=== PATIENT | male | born 1985 | race African-American/Black ===

== ENCOUNTER 2016-12-29 12:06 | Emergency (ER) | payer OTHER ==
[~2016-12-29] VITALS: Ht 190.5 cm; Wt 155.0 kg
[2016-12-29 13:28] LABS: BASOPHILS % 0.5 % (0.0-2.0); EOSINOPHILS % 1.5 % (0.0-5.0); MEAN CORPUSCULAR HEMOGLOBIN 29.8 pg (28.0-32.0); MEAN CORPUSCULAR HGB CONC 33.4 g/dL (31.0-37.0); MEAN PLATELET VOLUME 7.5 fl (7.4-10.4); MONOCYTES % 7.2 % (2.0-8.0); NEUTROPHILS % 60.8 % (40.0-76.0); PLATELET 223 x1000/uL (130-400); RED BLOOD CELL COUNT 4.71 mill/uL (4.7-6.1); RED CELL DISTRIBUTION WIDTH 14.6 % (11.6-14.6); WHITE BLOOD COUNT 5.2 x1000/uL (4.5-11.0)
[2016-12-29 13:31] LABS: CHLORIDE 103 mEq/L (98-107); INDEX HEMOLYSI 1 (1-3); INDEX ICTERIC 1 (1-4); INDEX LIPEMIC 1 (1-3)
[2016-12-29 13:38] LABS: ALANINE AMINOTRANSFERASE 27 IU/L (13-61); ALBUMIN 3.5 g/dL (3.4-5.0); ANION GAP 10; CALCIUM 8.6 mg/dL (8.5-10.1); CARBON DIOXIDE 29 mEq/L (21-32); LIPASE 81 IU/L (73-393); UREA NITROGEN BLOOD 9 mg/dL (7-21); eGFR > 60 mL/min (>60)
[2016-12-29 13:39] LABS: INR 1.1; PARTIAL THROMBOPLASTIN TIME 31.2 sec (24.0-34.0)
[2016-12-29 15:15] LABS: CLARITY URINE CLEAR (CLEAR); COLOR URINE YELLOW (YELLOW); GLUCOSE URINE NEGATIVE (NEGATIVE); KETONES URINE NEGATIVE (NEGATIVE); LEUKOCYTE ESTERASE URINE NEGATIVE (NEGATIVE); NITRITE URINE NEGATIVE (NEGATIVE); OCCULT BLOOD URINE NEGATIVE (NEGATIVE); PH URINE 5.5 (4.5-8.0); PROTEIN URINE NEGATIVE (NEGATIVE); UROBILINOGEN URINE 0.2 E.U./dL (0.2-1.0)
[2016-12-29 16:31] VITALS: BP 114/64
== END 2016-12-29 17:23 | disposition home or self-care (01) ==
LOC: ER 13:05
DX: K59.00 Constipation, unspecified (principal); R10.84 Generalized abdominal pain
CPT/HCPCS: 36415; 74010; 80053; 81003; 83690; 85025; 85610; 85730; 99285

== ENCOUNTER 2017-03-22 12:07 | Emergency (ER) | payer OTHER ==
[~2017-03-22] VITALS: Ht 190.5 cm; Wt 159.0 kg
[2017-03-22 12:36] VITALS: BP 139/85
[2017-03-22] MEDS ORDERED: TETANUS, DIPHTHERIA, PERTUSSIS VAC/PF 0.5ML (>7YR OLD) IM ONE (13:45)
[2017-03-22] MEDS ORDERED: BACITRACIN ZINC OINT UDPKT TOP ONE (13:45)
[2017-03-22] MEDS ORDERED: LIDOCAINE HCL 1%/EPI 1:200,000 30 ML VIAL MC ONE (13:45)
[2017-03-22] MEDS ORDERED: LIDOCAINE HCL 1% 20ML VIAL (Pyxis) INJ MC ONE (14:30)
== END 2017-03-22 15:40 | disposition home or self-care (01) ==
LOC: ER 12:36
DX: L60.0 Ingrowing nail (principal); L03.039 Cellulitis of unspecified toe
CPT/HCPCS: 10060; 90471; 90715; 99284; J3490; 99283; A4315

== ENCOUNTER 2018-07-24 07:25 | Emergency (ER) | payer SELFPAY ==
[~2018-07-24] VITALS: Ht 190.5 cm; Wt 169.1 kg
[2018-07-24 07:28] VITALS: BP 153/81
== END 2018-07-24 08:07 | disposition home or self-care (01) ==
LOC: ER 07:25
DX: T16.2XXA Foreign body in left ear, initial encounter (principal); X58.XXXA Exposure to other specified factors, initial encounter; Y93.89 Activity, other specified; Y92.9 Unspecified place or not applicable
CPT/HCPCS: 69200; 99284

== ENCOUNTER 2019-02-14 15:23 | Emergency (ER) | payer SELFPAY ==
[~2019-02-14] VITALS: Ht 172.7 cm; Wt 154.0 kg
[2019-02-14 21:05] LABS: BASOPHILS % 0.7 % (0.0-2.0); EOSINOPHILS % 5.8 % (0.0-5.0); HEMATOCRIT. 39.9 % (42.0-52.0); HEMOGLOBIN. 13.3 g/dL (14.0-18.0); LYMPHOCYTES % 34.5 % (20.0-50.0); MEAN CORPUSCULAR VOLUME 90.1 fL (80.0-94.0); MEAN PLATELET VOLUME 8.1 fl (7.4-10.4); MONOCYTES % 7.2 % (2.0-8.0); NEUTROPHILS % 51.8 % (40.0-76.0); PLATELET 230 x1000/uL (130-400); RED BLOOD CELL COUNT 4.43 mill/uL (4.7-6.1); RED CELL DISTRIBUTION WIDTH 15.4 % (11.6-14.6)
[2019-02-14 21:07] LABS: CHLORIDE 108 mEq/L (98-107)
[2019-02-14 23:15] VITALS: BP 127/71
== END 2019-02-14 23:18 | disposition home or self-care (01) ==
LOC: ER 18:03 → ENRESERV 02-15 00:03 → CANRESERV 02-15 00:03 → CANBEDREQ 02-15 03:22
DX: R00.2 Palpitations (principal); Z88.0 Allergy status to penicillin
CPT/HCPCS: 36415; 71045; 80053; 83880; 84484; 85025; 93005; 99284; Z7610

== ENCOUNTER 2019-03-17 19:59 | Emergency (ER) | payer SELFPAY ==
[~2019-03-17] VITALS: Ht 190.5 cm; Wt 146.0 kg
[2019-03-18 04:00] LABS: BASOPHILS % 0.5 % (0.0-2.0); EOSINOPHILS % 5.2 % (0.0-5.0); HEMATOCRIT. 36.5 % (42.0-52.0); HEMOGLOBIN. 12.1 g/dL (14.0-18.0); LYMPHOCYTES % 30.6 % (20.0-50.0); MEAN CORPUSCULAR HEMOGLOBIN 30.1 pg (28.0-32.0); MEAN CORPUSCULAR VOLUME 90.5 fL (80.0-94.0); MEAN PLATELET VOLUME 8.4 fl (7.4-10.4); MONOCYTES % 9.1 % (2.0-8.0); NEUTROPHILS % 54.6 % (40.0-76.0); PLATELET 202 x1000/uL (130-400); RED BLOOD CELL COUNT 4.03 mill/uL (4.7-6.1); RED CELL DISTRIBUTION WIDTH 15.8 % (11.6-14.6)
[2019-03-18 04:06] LABS: CHLORIDE 108 mEq/L (98-107)
[2019-03-18 05:43] VITALS: BP 117/76
== END 2019-03-18 05:30 | disposition home or self-care (01) ==
LOC: ER 19:59
DX: R07.89 Other chest pain (principal); Z88.0 Allergy status to penicillin
CPT/HCPCS: 36415; 71045; 81025; 84484; 85379; 93005; 99284

== ENCOUNTER 2019-03-25 19:18 | Emergency (ER) | payer SELFPAY ==
[~2019-03-25] VITALS: Ht 190.5 cm; Wt 143.8 kg
[2019-03-25] MEDS ORDERED: IBUPROFEN 800MG TABLET PO ONE (22:30)
[2019-03-25 23:17] VITALS: BP 120/72
== END 2019-03-25 23:24 | disposition home or self-care (01) ==
LOC: ER 19:18
DX: M79.632 Pain in left forearm (principal)
CPT/HCPCS: 99282

== ENCOUNTER 2019-07-11 17:11 | Emergency (ER) | payer MEDICAID ==
[~2019-07-11] VITALS: Ht 190.5 cm; Wt 90.0 kg
[2019-07-11 20:58] VITALS: BP 145/94
== END 2019-07-11 20:58 | disposition home or self-care (01) ==
LOC: ER 17:11
DX: B36.0 Pityriasis versicolor (principal); L73.9 Follicular disorder, unspecified; Z88.0 Allergy status to penicillin
CPT/HCPCS: 99283

== ENCOUNTER 2019-10-18 09:58 | Emergency (ER) | payer SELFPAY ==
[~2019-10-18] VITALS: Ht 190.5 cm; Wt 134.6 kg
[2019-10-18] MEDS ORDERED: KETOROLAC 60MG/2ML VIAL IM ONE (10:30)
[2019-10-18 11:47] LABS: CLARITY URINE CLEAR (CLEAR); COLOR URINE YELLOW (YELLOW); KETONES URINE NEGATIVE (NEGATIVE); LEUKOCYTE ESTERASE URINE NEGATIVE (NEGATIVE); NITRITE URINE NEGATIVE (NEGATIVE); OCCULT BLOOD URINE NEGATIVE (NEGATIVE); PH URINE 5.5 (4.5-8.0); PROTEIN URINE NEGATIVE (NEGATIVE); SPECIFIC GRAVITY URINE 1.027 (1.005-1.030); UROBILINOGEN URINE 0.2 E.U./dL (0.2-1.0)
[2019-10-18 12:16] VITALS: BP 138/74
== END 2019-10-18 12:16 | disposition home or self-care (01) ==
LOC: ER 11:10
DX: M54.9 Dorsalgia, unspecified (principal); R10.9 Unspecified abdominal pain
CPT/HCPCS: 71045; 74176; 81003; 96372; 99285; J1885

== ENCOUNTER 2020-05-10 14:55 | Emergency (ER) | payer MEDICAID ==
[~2020-05-10] VITALS: Ht 190.5 cm; Wt 143.0 kg
[2020-05-10 15:05] VITALS: BP 140/84
[2020-05-10] MEDS ORDERED: SODIUM CHLORIDE 0.9% 1,000 ML IV ONE (16:52)
[2020-05-10 17:16] LABS: BASOPHILS % 0.7 % (0.0-2.0); EOSINOPHILS % 2.1 % (0.0-5.0); HEMATOCRIT. 45.3 % (42.0-52.0); HEMOGLOBIN. 15.3 g/dL (14.0-18.0); LYMPHOCYTES % 26.5 % (20.0-50.0); MEAN CORPUSCULAR HEMOGLOBIN 31.9 pg (28.0-32.0); MEAN CORPUSCULAR VOLUME 94.2 fL (80.0-94.0); MEAN PLATELET VOLUME 7.6 fl (7.4-10.4); MONOCYTES % 5.6 % (2.0-8.0); NEUTROPHILS % 65.1 % (40.0-76.0); PLATELET 208 x1000/uL (130-400); RED BLOOD CELL COUNT 4.81 mill/uL (4.7-6.1); RED CELL DISTRIBUTION WIDTH 15.3 % (11.6-14.6)
[2020-05-10 17:22] LABS: CHLORIDE 106 mEq/L (98-107)
[2020-05-10 18:05] LABS: CLARITY URINE CLEAR (CLEAR); COLOR URINE YELLOW (YELLOW); KETONES URINE NEGATIVE (NEGATIVE); LEUKOCYTE ESTERASE URINE NEGATIVE (NEGATIVE); NITRITE URINE NEGATIVE (NEGATIVE); OCCULT BLOOD URINE NEGATIVE (NEGATIVE); PROTEIN URINE NEGATIVE (NEGATIVE); SPECIFIC GRAVITY URINE 1.021 (1.005-1.030); UROBILINOGEN URINE 0.2 E.U./dL (0.2-1.0)
== END 2020-05-10 19:07 | disposition home or self-care (01) ==
LOC: ER 14:55
DX: R42 Dizziness and giddiness (principal); F12.10 Cannabis abuse, uncomplicated; Z88.0 Allergy status to penicillin
CPT/HCPCS: 36415; 70450; 71045; 80053; 81003; 84484; 85025; 93005; 96360; 99285; J7030

== ENCOUNTER 2020-05-18 17:09 | Emergency (ER) | payer MEDICAID, OTHER ==
[~2020-05-18] VITALS: Ht 190.5 cm; Wt 142.8 kg
[2020-05-18] MEDS ORDERED: SODIUM CHLORIDE 0.9% 500 ML IV ONE (19:00)
[2020-05-18 19:34] LABS: BASOPHILS % 0.7 % (0.0-2.0); EOSINOPHILS % 2.5 % (0.0-5.0); HEMATOCRIT. 41.8 % (42.0-52.0); HEMOGLOBIN. 14.2 g/dL (14.0-18.0); LYMPHOCYTES % 28.7 % (20.0-50.0); MEAN CORPUSCULAR HEMOGLOBIN 32.3 pg (28.0-32.0); MEAN CORPUSCULAR VOLUME 94.7 fL (80.0-94.0); MEAN PLATELET VOLUME 7.7 fl (7.4-10.4); NEUTROPHILS % 62.1 % (40.0-76.0); PLATELET 220 x1000/uL (130-400); RED BLOOD CELL COUNT 4.41 mill/uL (4.7-6.1); RED CELL DISTRIBUTION WIDTH 14.5 % (11.6-14.6)
[2020-05-18 19:35] LABS: CHLORIDE 106 mEq/L (98-107)
[2020-05-18] MEDS ORDERED: KETOROLAC 60MG/2ML VIAL IM ONE (21:30)
[2020-05-18 21:36] VITALS: BP 127/88
== END 2020-05-18 23:00 | disposition home or self-care (01) ==
LOC: ER 17:28
DX: R51 Headache (principal); R42 Dizziness and giddiness; F12.10 Cannabis abuse, uncomplicated; Z88.0 Allergy status to penicillin
CPT/HCPCS: 36415; 70450; 80053; 83880; 84443; 84484; 85025; 93005; 96360; 96372; 99285; J1885; J7040

== ENCOUNTER 2020-05-27 17:03 | Inpatient (IN) | payer MEDICAID, OTHER ==
[~2020-05-27] VITALS: Ht 188 cm; Wt 141.1 kg
[2020-05-27 18:21] LABS: BASOPHILS % 0.5 % (0.0-2.0); EOSINOPHILS % 3.3 % (0.0-5.0); HEMOGLOBIN. 14.6 g/dL (14.0-18.0); MEAN CORPUSCULAR HEMOGLOBIN 31.9 pg (28.0-32.0); MEAN PLATELET VOLUME 7.8 fl (7.4-10.4); MONOCYTES % 6.5 % (2.0-8.0); NEUTROPHILS % 67.7 % (40.0-76.0); PLATELET 260 x1000/uL (130-400); RED BLOOD CELL COUNT 4.58 mill/uL (4.7-6.1); RED CELL DISTRIBUTION WIDTH 14.1 % (11.6-14.6)
[2020-05-27 18:28] LABS: CHLORIDE 107 mEq/L (98-107)
[2020-05-27 18:30] LABS: PROTHROMBIN TIME 10.5 sec (9.6-11.0)
[2020-05-27 18:36] LABS: LDL CHOLESTEROL 112 mg/dL (5-100)
[2020-05-27 20:28] LABS: CLARITY URINE CLEAR (CLEAR); COLOR URINE YELLOW (YELLOW); KETONES URINE NEGATIVE (NEGATIVE); LEUKOCYTE ESTERASE URINE NEGATIVE (NEGATIVE); NITRITE URINE NEGATIVE (NEGATIVE); OCCULT BLOOD URINE NEGATIVE (NEGATIVE); PROTEIN URINE NEGATIVE (NEGATIVE); SPECIFIC GRAVITY URINE 1.027 (1.005-1.030); UROBILINOGEN URINE 0.2 E.U./dL (0.2-1.0)
[2020-05-27 20:39] LABS: *AMPHETAMINES SCREEN URINE NEGATIVE (NEGATIVE); *BARBITURATES SCREEN URINE NEGATIVE (NEGATIVE); *BENZODIAZEPINES SCREEN URINE NEGATIVE (NEGATIVE); *COCAINE SCREEN URINE NEGATIVE (NEGATIVE); CANNABINOID URINE SCREEN PRESUMTIVE POSITIVE (NEGATIVE); OPIATES URINE SCREEN NEGATIVE (NEGATIVE); PHENCYCLIDINE URINE SCREEN NEGATIVE (NEGATIVE)
[2020-05-27 20:40] LABS: METHADONE URINE SCREEN NEGATIVE (NEGATIVE)
[2020-05-27 22:30] VITALS: BP 111/70
[2020-05-27 23:30] VITALS: BP 111/70
[2020-05-28 04:00] VITALS: BP 97/50
[2020-05-28 08:00] VITALS: BP 132/69
[2020-05-28] MEDS ORDERED: ASPIRIN 325MG TABLET PO SCH (09:00)
[2020-05-28 12:00] VITALS: BP 141/65
[2020-05-28] MEDS ORDERED: SODIUM CHLORIDE 0.45% 1,000 ML IV SCH (14:00)
[2020-05-28 16:00] VITALS: BP 129/70
[2020-05-28 16:26] LABS: MEAN CORPUSCULAR HEMOGLOBIN 31.7 pg (28.0-32.0); MEAN CORPUSCULAR VOLUME 94.9 fL (80.0-94.0); PLATELET 255 x1000/uL (130-400); RED BLOOD CELL COUNT 4.43 mill/uL (4.7-6.1); RED CELL DISTRIBUTION WIDTH 13.9 % (11.6-14.6)
[2020-05-28 16:31] LABS: CHLORIDE 107 mEq/L (98-107)
[2020-06-01 17:10] LABS: ANTI-DNA DOUBLE STRANDED QUANT < 1 IU/mL (0-9); ANTI-NUCLEAR ANTIBODIES DIRECT Negative (Negative); ANTI-SCLERODERMA-70 AB <0.2 AI (0.0-0.9); RNP ANTIBODY < 0.2 AI (0.0-0.9); SJOGRENS ANTI SS-A < 0.2 AI (0.0-0.9); SJOGRENS ANTI SS-B < 0.2 AI (0.0-0.9); SMITH ABS < 0.2 AI (0.0-0.9)
[2020-06-02 06:11] LABS: DRVVT LA 47.8 sec (0.0-47.0); DRVVT MIX LA 41.7 sec (0.0-47.0); LUPUS ANTICOAG INTERPRETATION Comment: (.); PTT-LA 33.6 sec (0.0-51.9)
[2020-06-02 09:10] LABS: ANGIOTENSION CONVERTING ENZYME 17 U/L (14-82)
[2020-06-02 13:11] LABS: ACTIN (SMOOTH MUSCLE) ANTIBODY 11 Units (0-19); ANTI-MYELOPEROXIDASE AB < 9.0 U/mL (0.0-9.0); ANTI-PROTEINASE 3 ABS < 3.5 U/mL (0.0-3.5); CYTOPLASMIC C-ANCA <1:20 titer (Neg:<1:20); PERINUCLEAR P-ANCA <1:20 titer (Neg:<1:20)
[2020-06-03 15:10] LABS: ATYPICAL P-ANCA <1:20 titer (Neg:<1:20)
== END 2020-05-28 21:15 | disposition home or self-care (01) | DRG 552 ==
LOC: ER 17:03 → 8WST 21:17 → ENRESERV 21:56
PROVIDERS: ADMIT Internal Medicine; ATTEND Internal Medicine
DX: M48.02 Spinal stenosis, cervical region (principal); G37.9 Demyelinating disease of central nervous system, unspecified; E66.01 Morbid (severe) obesity due to excess calories; R51.9 Headache, unspecified; M47.812 Spondylosis without myelopathy or radiculopathy, cervical region; F12.90 Cannabis use, unspecified, uncomplicated; Z68.38 Body mass index [BMI] 38.0-38.9, adult; Z88.0 Allergy status to penicillin; Z83.2 Family history of diseases of the blood and blood-forming organs and certain disorders involving the immune mechanism; Z81.2 Family history of tobacco abuse and dependence; R53.1 Weakness
CPT/HCPCS: 36415; 70551; 70552; 71045; 72141; 72142; 80048; 80053; 80061; 80305; 81003; 82164; 83520; 83721; 84484; 85025; 85027; 85613; 85651; 85732; 86038; 86256; 93005; 97161; 97165; 99285

== ENCOUNTER 2020-10-29 17:56 | Emergency (ER) | payer SELFPAY ==
[~2020-10-29] VITALS: Ht 190.5 cm; Wt 164.0 kg
[2020-10-29 19:48] LABS: CHLORIDE 106 mEq/L (98-107)
[2020-10-29 19:54] LABS: BASOPHILS % 0.4 % (0.0-2.0); EOSINOPHILS % 2.1 % (0.0-5.0); HEMOGLOBIN. 13.9 g/dL (14.0-18.0); LYMPHOCYTES % 24.8 % (20.0-50.0); MEAN CORPUSCULAR HEMOGLOBIN 31.5 pg (28.0-32.0); MEAN CORPUSCULAR VOLUME 90.8 fL (80.0-94.0); MEAN PLATELET VOLUME 7.8 fl (7.4-10.4); MONOCYTES % 6.4 % (2.0-8.0); NEUTROPHILS % 66.3 % (40.0-76.0); PLATELET 253 x1000/uL (130-400); RED BLOOD CELL COUNT 4.41 mill/uL (4.7-6.1)
[2020-10-29 23:08] VITALS: BP 118/73
== END 2020-10-29 23:27 | disposition home or self-care (01) ==
LOC: ER 17:56
DX: R07.89 Other chest pain (principal); F12.10 Cannabis abuse, uncomplicated; M54.9 Dorsalgia, unspecified; R53.1 Weakness; Z88.0 Allergy status to penicillin
CPT/HCPCS: 36415; 71045; 80048; 84484; 85025; 93005; 99285; Z7610

== ENCOUNTER 2020-11-03 11:58 | Emergency (ER) | payer SELFPAY ==
[~2020-11-03] VITALS: Ht 190.5 cm; Wt 178.0 kg
[2020-11-03 13:00] LABS: BASOPHILS % 0.6 % (0.0-2.0); HEMATOCRIT. 44.2 % (42.0-52.0); HEMOGLOBIN. 14.6 g/dL (14.0-18.0); LYMPHOCYTES % 16.1 % (20.0-50.0); MEAN CORPUSCULAR HEMOGLOBIN 30.5 pg (28.0-32.0); MEAN CORPUSCULAR VOLUME 92.3 fL (80.0-94.0); MEAN PLATELET VOLUME 7.9 fl (7.4-10.4); MONOCYTES % 5.5 % (2.0-8.0); NEUTROPHILS % 75.8 % (40.0-76.0); PLATELET 248 x1000/uL (130-400); RED BLOOD CELL COUNT 4.79 mill/uL (4.7-6.1); RED CELL DISTRIBUTION WIDTH 13.9 % (11.6-14.6)
[2020-11-03 13:05] LABS: CHLORIDE 107 mEq/L (98-107)
[2020-11-03 13:15] LABS: ETHANOL BLOOD < 10 mg/dL
[2020-11-03] MEDS ORDERED: SODIUM CHLORIDE 0.9% 1,000 ML IV ONE (13:45)
[2020-11-03 16:07] LABS: OPIATES URINE SCREEN NEGATIVE (NEGATIVE); PHENCYCLIDINE URINE SCREEN NEGATIVE (NEGATIVE)
[2020-11-03 16:08] LABS: *AMPHETAMINES SCREEN URINE NEGATIVE (NEGATIVE); *BARBITURATES SCREEN URINE NEGATIVE (NEGATIVE); *BENZODIAZEPINES SCREEN URINE NEGATIVE (NEGATIVE); *COCAINE SCREEN URINE NEGATIVE (NEGATIVE); CANNABINOID URINE SCREEN PRESUMTIVE POSITIVE (NEGATIVE); METHADONE URINE SCREEN NEGATIVE (NEGATIVE)
[2020-11-03] MEDS ORDERED: IBUP-2030 MT (17:35)
[2020-11-03 18:00] VITALS: BP 138/80
== END 2020-11-03 18:28 | disposition home or self-care (01) ==
LOC: ER 11:58
DX: R07.9 Chest pain, unspecified (principal); J02.9 Acute pharyngitis, unspecified; Z88.0 Allergy status to penicillin
CPT/HCPCS: 36415; 71045; 80053; 80305; 80320; 83690; 83880; 84484; 85025; 87070; 87430; 93005; 96360; 96361; 99285; J7030; G0480

== ENCOUNTER 2021-01-30 10:36 | Emergency (ER) | payer SELFPAY ==
[~2021-01-30] VITALS: Ht 190.5 cm; Wt 160.0 kg
[~2021-01-30 10:36] MED LIST: IBUP-2030 MT
[2021-01-30] MEDS ORDERED: LIDOCAINE HCL/PF 1% 10 MG/ML 5ML VIAL IJ ONE (11:15)
[2021-01-30] MEDS ORDERED: BACITRACIN ZINC OINT UDPKT TOP ONE (11:15)
[2021-01-30] MEDS ORDERED: IBUPROFEN 600MG TABLET PO ONE (11:15)
[2021-01-30] MEDS ORDERED: BO1 TP (12:37)
[2021-01-30 12:55] VITALS: BP 122/73
== END 2021-01-30 12:56 | disposition home or self-care (01) ==
LOC: ER 11:15
DX: L60.0 Ingrowing nail (principal); Z88.0 Allergy status to penicillin
CPT/HCPCS: 99283; J3490; Z7610

== ENCOUNTER 2021-02-01 14:41 | Emergency (ER) | payer MEDICAID ==
[~2021-02-01] VITALS: Ht 190.5 cm; Wt 159.0 kg
[~2021-02-01 14:41] MED LIST changes: +BO1 TP
[2021-02-01] MEDS ORDERED: BACITRACIN ZINC OINT UDPKT TOP ONE (18:15)
[2021-02-01] MEDS ORDERED: T3 PO (18:25)
[2021-02-01] MEDS ORDERED: SULF1TAB48 PO (18:25)
[2021-02-01 18:50] VITALS: BP 125/77
== END 2021-02-01 18:50 | disposition home or self-care (01) ==
LOC: ER 14:41
DX: L60.0 Ingrowing nail (principal); Z88.0 Allergy status to penicillin
CPT/HCPCS: 99283

== ENCOUNTER 2021-02-03 16:43 | Emergency (ER) | payer MEDICAID ==
[~2021-02-03] VITALS: Ht 185.4 cm; Wt 150.0 kg
[~2021-02-03 16:43] MED LIST changes: +SULF1TAB48 PO; +T3 PO
[2021-02-03 16:46] VITALS: BP 123/72
[2021-02-03] MEDS ORDERED: CEPH500T MT (17:30)
== END 2021-02-03 17:42 | disposition home or self-care (01) ==
LOC: ER 16:43
DX: L60.0 Ingrowing nail (principal); L03.031 Cellulitis of right toe; Z88.0 Allergy status to penicillin
CPT/HCPCS: 99281; Z7610

== ENCOUNTER 2021-02-05 11:55 | Emergency (ER) | payer MEDICAID ==
[~2021-02-05] VITALS: Ht 190.5 cm; Wt 159.0 kg
[~2021-02-05 11:55] MED LIST changes: +CEPH500T MT
[2021-02-05 11:58] VITALS: BP 138/86
== END 2021-02-05 13:05 | disposition home or self-care (01) ==
LOC: ER 11:55
DX: L03.031 Cellulitis of right toe (principal); Z48.00 Encounter for change or removal of nonsurgical wound dressing; Z88.0 Allergy status to penicillin
CPT/HCPCS: 99281

== ENCOUNTER 2023-02-22 13:40 | Emergency (ER) | payer SELFPAY ==
[~2023-02-22] VITALS: Ht 190.5 cm; Wt 131.0 kg
[2023-02-22 13:46] VITALS: TEMP 98.8; O2SAT 99
[2023-02-22] MEDS ORDERED: IBUPROFEN 600MG TABLET PO STA (14:00)
[2023-02-22] MEDS ORDERED: NAPR-681 PO (15:07)
[2023-02-22 15:59] VITALS: BP 125/78; PULSE 65; RESP 18
[2023-02-22] MEDS ORDERED: IBUPROFEN 600MG TABLET PO NR (16:00)
== END 2023-02-22 16:00 | disposition home or self-care (01) ==
LOC: ER 13:40
DX: S39.012A Strain of muscle, fascia and tendon of lower back, initial encounter (principal); V49.49XA Driver injured in collision with other motor vehicles in traffic accident, initial encounter; Y93.89 Activity, other specified; Y92.89 Other specified places as the place of occurrence of the external cause; Y99.8 Other external cause status; Z88.0 Allergy status to penicillin
CPT/HCPCS: 72100; 99283

== ENCOUNTER 2023-06-02 09:51 | Emergency (ER) | payer SELFPAY ==
[~2023-06-02] VITALS: Ht 190.5 cm; Wt 113.0 kg
[~2023-06-02 09:51] MED LIST changes: +NAPR-681 PO
[2023-06-02 10:07] VITALS: BP 132/57; PULSE 51; RESP 20; TEMP 98.2; O2SAT 99
[2023-06-02] MEDS ORDERED: DOXY-456 MT (11:11)
== END 2023-06-02 11:25 | disposition home or self-care (01) ==
LOC: ER 10:02
DX: L73.9 Follicular disorder, unspecified (principal); Z79.899 Other long term (current) drug therapy; Z88.0 Allergy status to penicillin
CPT/HCPCS: 99283

== ENCOUNTER 2025-05-23 21:52 | Emergency (ER) | payer SELFPAY ==
[~2025-05-23] VITALS: Ht 190.5 cm; Wt 138.4 kg
[~2025-05-23 21:52] MED LIST changes: +DOXY-461 MT
[2025-05-23 22:57] VITALS: O2SAT 99
[2025-05-23 23:36] LABS: BASOPHILS % 0.8 % (0.0-2.0); EOSINOPHILS % 5.9 % (0.0-5.0); HEMATOCRIT. 39.2 % (42.0-52.0); HEMOGLOBIN. 13.1 g/dL (14.0-18.0); LYMPHOCYTES % 30.6 % (20.0-50.0); MEAN PLATELET VOLUME 7.2 fl (7.4-10.4); MONOCYTES % 10.1 % (2.0-8.0); NEUTROPHILS % 52.6 % (40.0-76.0); PLATELET 201 x1000/uL (130-400); RED BLOOD CELL COUNT 4.21 mill/uL (4.7-6.1); RED CELL DISTRIBUTION WIDTH 16.2 % (11.6-14.6)
[2025-05-23 23:45] LABS: CLARITY URINE CLEAR (CLEAR); COLOR URINE YELLOW (YELLOW); GLUCOSE URINE NEGATIVE (NEGATIVE); KETONES URINE NEGATIVE (NEGATIVE); LEUKOCYTE ESTERASE URINE NEGATIVE (NEGATIVE); NITRITE URINE NEGATIVE (NEGATIVE); OCCULT BLOOD URINE NEGATIVE (NEGATIVE); PH URINE 6.5 (4.5-8.0); PROTEIN URINE NEGATIVE (NEGATIVE); SPECIFIC GRAVITY URINE 1.019 (1.005-1.030); UROBILINOGEN URINE 0.2 E.U./dL (0.2-1.0)
[2025-05-23 23:52] LABS: TROPONIN I HIGH SENSITIVITY < 4 ng/L (3.0-53)
[2025-05-24] MEDS: ACETAMINOPHEN 325MG TABLET PO ONE (01:12)
[2025-05-24 02:27] LABS: CREATININE 1.0 mg/dL (0.6-1.3); UREA NITROGEN BLOOD 14 mg/dL (9-23)
[2025-05-24 02:29] LABS: ASPARTATE AMINOTRANSFERASE 34 IU/L (<34); BILIRUBIN TOTAL 0.5 mg/dL (0.1-1.0); PROTEIN TOTAL 6.9 g/dL (6.0-8.3)
[2025-05-24 03:01] VITALS: BP 133/79; PULSE 60; RESP 16; TEMP 36.7; O2SAT 98
== END 2025-05-24 03:10 | disposition home or self-care (01) ==
LOC: ER 22:03
DX: R07.89 Other chest pain (principal); Z88.0 Allergy status to penicillin
CPT/HCPCS: 36415; 71045; 80053; 81003; 84484; 85025; 93005; 99285